=== PATIENT | male | born 1995 | race Caucasian/White ===

== ENCOUNTER 2019-04-15 12:33 | Emergency (ER) | payer SELFPAY ==
[~2019-04-15] VITALS: Ht 182.9 cm; Wt 77.1 kg
[2019-04-15] MEDS ORDERED: LIDOCAINE 1% INJ 20 ML 20 ML VIAL ONE (12:36)
[2019-04-15] MEDS ORDERED: TETANUS,DIPTH,PERTUSS P/F (BOOSTRIX) 0.5 ML VIAL IM ONE (12:45)
[2019-04-15] MEDS ORDERED: LIDOCAINE 1% INJ 20 ML 20 ML VIAL INJ ONE (12:45)
[2019-04-15 13:00] VITALS: BP 133/73
--- NOTE | 2019-04-15 13:00 | NUR ---
placed (2) 4-0 Nylon blanket stitches over right middle finger PIP joint
--- NOTE | 2019-04-15 13:03 | ED Upper Extremity ---
General Chief Complaint: Laceration Stated Complaint: RT FINGER LAC Source: patient Exam Limitations: no limitations History of Present Illness Date Seen by Provider: April 15, 2019 Time Seen by Provider: 12:58 Initial Comments This 23-year-old white male presents after stating laceration 2 weeks ago on sharp metal while forcefully closing a window. The patient's injury was to the PIP joint dorsal aspect right middle finger. The wound has not closed and the patient has been sent to the emergency department by his employer for evaluation. There is been no undue redness or increasing pain to the area. The laceration is simply failed to close this is located over the PIP joint and the patient has been using the finger vigorously. Patient has some intermittent numbness to the dorsum of his right middle finger. He denies loss of motion of the digit or decrease in strength. Allergies and Home Medications Allergies Coded Allergies: No Known Drug Allergies (Unverified , 04/15/19) Patient Home Medication List Home Medication List Reviewed: Yes Review of Systems Constitutional: No chills EENTM: no symptoms reported Respiratory: No cough Cardiovascular: No chest pain Gastrointestinal: no symptoms reported Genitourinary: no symptoms reported Musculoskeletal: no symptoms reported Skin: other (laceration right middle finger PIP joint dorsum.) Psychiatric/Neurological: No Symptoms Reported Past Qcsmknu-Ozpioi-Ololpc Hx Past Med/Social Hx: Reviewed Nursing Past Med/Soc Hx Physical Exam Vital Signs Capillary Refill : Height, Weight, BMI Height: '" Weight: lbs. oz. kg; BMI Method: General Appearance: WD/WN, no apparent distress HEENT: normal ENT inspection Neck: normal inspection Respiratory: no respiratory distress Shoulder: normal inspection Elbow/Forearm: normal inspection Wrist: Yes normal inspection Hand: Right (there is a 1 cm laceration to the dorsum of the PIP joint of the right middle finger. This laceration is open without evidence of inflammation. There is no extension into the joint. There was a grossly normal neurovascular tendon exam of the right middle finger.) Neurologic/Tendon: normal sensation, normal motor functions, normal tendon functions Neurologic/Psychiatric: no motor/sensory deficits, alert, normal mood/affect, oriented x 3 Skin: normal color, warm/dry, other (1 cm laceration to the right middle finger dorsum of the digit at the PIP joint) Progress/Results/Core Measures Results/Orders My Orders Orders - ESMER ALDANA MD Lidocaine 1% Inj 20 Ml (Xylocaine 1% Inj (04/15/19 12:36) Dipht,Pertuss(Acell),Tet Adult (Boostrix (04/15/19 12:45) Lidocaine 1% Inj 20 Ml (Xylocaine 1% Inj (04/15/19 12:45) Progress Progress Note : Time: 13:01 Progress Note After discussion with the patient treatment options the patient asked that the wound be closed. The wound was copiously cleaned. One percent plain Xylocaine was employed for local anesthesia. 2 horizontal mattress sutures with 4-0 nylon were used to approximate the wound edges. A dressing was applied. Initial ECG Impression Date: April 15, 2019 Departure Impression Primary Impression: Laceration of finger Qualified Codes: S61.212A - Laceration without foreign body of right middle finger without damage to nail, initial encounter Disposition: 01 HOME, SELF-CARE Condition: Improved Departure-Patient Inst. Decision time for Depature: 13:03 Referrals: NO,LOCAL PHYSICIAN (PCP) Primary Care Physician Patient Instructions: Laceration Repair Add. Discharge Instructions: Sutures out in 10-14 days. Watch for signs of infection. Tylenol and/or ibuprofen for pain. Return if any problems or questions. All discharge instructions reviewed with patient and/or family. Voiced understanding. ESMER ALDANA MD April 15, 2019 13:03
--- OUTSIDE RECORDS SUMMARY | 2019-04-15 13:31 | XMS REPORT | Continuity of Care Document ---
Author Organization Unknown Address Unknown Allergies There is no data. Medications There is no data. Problems There is no data. Procedures There is no data. Results There is no data. Encounters ACCT No. Visit Date/Time Discharge Status Pt. Type Provider Facility Loc./Unit Complaint [id number] 03/05/2019 12:30:00 03/05/2019 23:59:59 CLS Outpatient LEAH MELTON LAC [facility]
== END 2019-04-15 13:00 | disposition home or self-care (01) ==
LOC: EDUNIT# 12:33 → ER FS 12:35
DX: S61.212A Laceration without foreign body of right middle finger without damage to nail, initial encounter (principal); Z23 Encounter for immunization; W26.8XXA Contact with other sharp object(s), not elsewhere classified, initial encounter
CPT/HCPCS: 12001; 90471; 90715

== ENCOUNTER 2019-05-18 19:07 | Emergency (ER) | payer SELFPAY ==
[~2019-05-18] VITALS: Ht 182.9 cm; Wt 90.7 kg
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
[2019-05-18] MEDS ORDERED: AMOX500C2 PO (19:52)
--- NOTE | 2019-05-18 19:52 | ED EENT ---
History of Present Illness General Chief Complaint: Dental Problems/Pain Stated Complaint: LT SIDE FACE PAIN, TOOTH PAIN Nursing Triage Note: PT COMPLAINING OF LEFT UPPER DENTAL PAIN. 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 He has tried Orajel. He also took ibuprofen around noon. He attempted to extract the tooth with pliers a couple hours prior to arrival. This was not effective and he further fragmented the tooth. He has not yet contacted a dentist about this problem. He denies any fevers. Allergies and Home Medications Allergies Coded Allergies: No Known Drug Allergies (Unverified , 04/15/19) Home Medications Amoxicillin 500 Mg Capsule, 1,000 MG PO BID Prescribed by: MALACHI CARRILLO on 05/18/191951 Patient Home Medication List Home Medication List Reviewed: Yes Review of Systems Review of Systems Constitutional: no symptoms reported Eyes: No Symptoms Reported Ears: No Symptoms Reported Nose: no symptoms reported Mouth: see HPI Throat: no symptoms reported Respiratory: no symptoms reported Cardiovascular: no symptoms reported Gastrointestinal: no symptoms reported Musculoskeletal: no symptoms reported Skin: no symptoms reported Neurological: No Symptoms Reported Hematologic/Lymphatic: No Symptoms Reported Past Qifoypq-Aylmne-Jraije Hx Past Med/Social Hx: Reviewed Nursing Past Med/Soc Hx Patient Social History Alcohol Use: Denies Use Recreational Drug Use: No Type Used: Cigarettes 2nd Hand Smoke Exposure: Yes Recent Foreign Travel: No Contact w/Someone Who Travel: No Recent Infectious Disease Expo: No Recent Hopitalizations: No Immunizations Up To Date Tetanus Booster (TDap): Less than 5yrs Seasonal Allergies Seasonal Allergies: No Past Medical History Surgeries: No Respiratory: No Cardiac: No Neurological: No Genitourinary: No Gastrointestinal: No Musculoskeletal: No Endocrine: No HEENT: No Cancer: No Psychosocial: No Integumentary: No Blood Disorders: No Physical Exam Vital Signs Vital Signs - First Documented 05/18/19 19:23 Temp 97.7 Pulse 65 Resp 18 B/P (MAP) 138/75 (96) Pulse Ox 99 O2 Delivery Room Air Height, Weight, BMI Height: 6'0" Weight: 200lbs. oz. 90.064553zh; BMI Method:Stated General Appearance: WD/WN, mild distress Eyes: bilateral eye normal inspection, bilateral eye PERRL, bilateral eye EOMI Ears: bilateral ear auricle normal, bilateral ear canal normal, bilateral ear TM normal Nose: normal inspection Mouth/Throat: pharynx normal, other (multiple dental caries in the left upper molars. The most posterior molar is fractured and significantly decayed. There is localized erythema of the gingiva with mild edema. 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, no motor/sensory deficits, alert, normal mood/affect, oriented x 3 Skin: normal color, warm/dry Progress/Results/Core Measures Results/Orders My Orders Orders - MALACHI MARIEE MD Amoxicillin Capsule (Polymox Capsule) (05/18/19 20:00) Medications Given in ED Current Medications Medications Dose Ordered Sig/Jacob Route Start Time Stop Time Status Last Admin Dose Admin Amoxicillin 1,000 mg ONCE ONCE PO 05/18/19 20:00 05/18/19 20:01 DC 05/18/19 19:54 1,000 MG Vital Signs/I&O 05/18/19 05/18/19 19:23 20:00 Temp 97.7 Pulse 65 65 Resp 18 20 B/P (MAP) 138/75 (96) 138/75 (96) Pulse Ox 99 99 O2 Delivery Room Air Blood Pressure Mean: 96 Progress Progress Note : Progress Note The first dose of amoxicillin was given in the ER as pharmacies are now closing. He was advised to seek attention from a dentist as soon as possible. Tylenol and ibuprofen together were recommended for pain control. Departure Impression Primary Impression: Dental decay Additional Impressions: Pain, dental Gingivitis Disposition: HOME, SELF-CARE Condition: Improved Departure-Patient Inst. Decision time for Depature: 19:49 Referrals: NO,LOCAL PHYSICIAN (PCP/Family) Primary Care Physician Patient Instructions: Dental Pain, Tooth Decay, Adult Add. Discharge Instructions: Complete your antibiotics as prescribed. See a dentist as soon as possible (call tomorrow) as dental extraction is ultimately what is needed to treat your problem. For pain take ibuprofen up to 600 mg every 6 hours as needed in combination with Tylenol (acetaminophen) up to 1000 mg every 6 hours. Contact your dentist or primary care provider for any other problems or concerns . All discharge instructions reviewed with patient and/or family. Voiced understanding. Scripts Amoxicillin (Amoxicillin) 500 Mg Capsule 1000 MG PO BID, #40 CAP 0 Refills Prov: MALACHI MARIEE MD 05/18/19 MALACHI MARIEE MD May 18, 2019 19:52
[2019-05-18 20:00] VITALS: BP 138/75
[2019-05-18] MEDS ORDERED: AMOXICILLIN 500 MG (POLYMOX) CAP PO ONE (20:00)
== END 2019-05-18 20:00 | disposition home or self-care (01) ==
LOC: EDUNIT# 19:07 → ER FS 19:10
DX: K02.9 Dental caries, unspecified (principal); K05.10 Chronic gingivitis, plaque induced; Z77.22 Contact with and (suspected) exposure to environmental tobacco smoke (acute) (chronic)
CPT/HCPCS: 99283

== ENCOUNTER 2020-05-14 12:39 | Emergency (ER) | payer SELFPAY ==
[~2020-05-14] VITALS: Ht 182 cm; Wt 98.8 kg
[~2020-05-14 12:39] MED LIST: AMOX500C2 PO
--- OUTSIDE RECORDS SUMMARY | 2020-05-14 12:43 | XMS REPORT | Continuity of Care Document ---
Author Organization Unknown Address Unknown Phone Unavailable Allergies Active Description Code Type Severity Reaction Onset Reported/Identified Relationship to Patient Clinical Status Yes No Known Drug Allergies [id number] Drug Allergy Unknown N/A 04/15/2019 Medications There is no data. Problems Date Dx Coded Attending Type Code Diagnosis Diagnosed By 04/15/2019 JOVAN QIU, ESMER Corea Ot S61.212A LACERATION W/O FB OF R MID FINGER W/O DA 04/15/2019 ESMER ALDANA MD Ot W26.8XXA CONTACT WITH OTHER SHARP OBJECT(S), NEC, 04/15/2019 ESMER ALDANA MD Ot Z23 ENCOUNTER FOR IMMUNIZATION 05/21/2019 KODI QIU, MALACHI Dugan Ot K02.9 DENTAL CARIES, UNSPECIFIED 05/21/2019 KODI QIU, MALACHI Dugan Ot K05.10 CHRONIC GINGIVITIS, PLAQUE INDUCED 05/21/2019 KODI QIU, MALACHI Dugan Ot K08.89 OTHER SPECIFIED DISORDERS OF TEETH AND S 05/21/2019 KODI QIU, MALACHI Dugan Ot Z77.22 CNTCT W AND EXPSR TO ENVIRON TOBACCO SMO Procedures There is no data. Results There is no data. Encounters ACCT No. Visit Date/Time Discharge Status Pt. Type Provider Facility Loc./Unit Complaint [id number] 03/05/2019 12:30:00 03/05/2019 23:59:5 9 CLS Outpatient GERONIMO LAC, [facility] [id number] 05/18/2019 19:10:00 019 20:00:00 DIS Outpatient MALACHI MARIEE MD Via [facility] ER FS LT SIDE FACE PA IN, TOOTH PAIN [id number] 04/15/2019 12:35:00 019 13:00:00 DIS Emergency ESMER ALDANA MD Via [facility] ER FS RT FINGER LAC
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
[2020-05-14 14:29] VITALS: BP 133/83
== END 2020-05-14 14:28 | disposition home or self-care (01) ==
LOC: EDUNIT# 12:39 → ER FS 12:40
DX: S60.221A Contusion of right hand, initial encounter (principal); Z77.22 Contact with and (suspected) exposure to environmental tobacco smoke (acute) (chronic); W22.8XXA Striking against or struck by other objects, initial encounter
CPT/HCPCS: 73130

== ENCOUNTER 2022-08-03 09:32 | Emergency (ER) | payer SELFPAY ==
[~2022-08-03] VITALS: Ht 185.5 cm; Wt 104.5 kg
[2022-08-03 09:40] VITALS: BP 144/99
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
[2022-08-03] MEDS ORDERED: ORPHENADRINE 60 MG/2 ML (NORFLEX) AMP (ED ONLY) IM STA (09:43)
[2022-08-03] MEDS ORDERED: KETOROLAC 30 MG/ML VIAL IM STA (09:43)
== END 2022-08-03 09:58 | disposition home or self-care (01) ==
LOC: EDUNIT# 09:32 → ER FS 09:33
DX: G44.209 Tension-type headache, unspecified, not intractable (principal); Z28.310 Unvaccinated for COVID-19
CPT/HCPCS: 99284

== ENCOUNTER 2023-04-22 11:31 | Emergency (ER) | payer SELFPAY ==
[~2023-04-22] VITALS: Ht 185.5 cm; Wt 104.5 kg
--- NOTE | 2023-04-22 12:17 | Diagnostic Imaging Report ---
FOOT 3 VIEW LEFT INDICATION: Left foot pain COMPARISON: None available. TECHNIQUE: Three non-weightbearing views of foot were obtained. FINDINGS: No fracture or traumatic malalignment. No evidence of metatarsal stress fracture. No soft tissue swelling. IMPRESSION: 1. No acute fracture or traumatic malalignment. Dictated by: Dictated on workstation # [id number]
--- NOTE | 2023-04-22 12:36 | ED Lower Extremity ---
General Chief Complaint: Lower Extremity Stated Complaint: LT TOE INJ Nursing Triage Note: PT AMBULATE TO ROOM FS02 WITHOUT DIFFICULTY WITH C/O LEFT FOOT PAIN. Source: patient History of Present Illness Date Seen by Provider: April 22, 2023 Time Seen by Provider: 11:36 Initial Comments 27-year-old male presenting with complaints of pain to his left foot and big toe. On Saturday he had been mowing the lawn and caught his foot causing hyperextension where the foot bent back and touched his thomas. He states that then came back down and he had severe pain. Pain is primarily in the joint of the great toe. He has been taking acetaminophen which has helped with his pain but not resolved. He denies any bruising or color change. He rates his pain at a 4 out of 10 and states it has been fairly constant since the initial severe pain right after the injury. He does have improvement when he takes a Tylenol but it wears off as the Tylenol wears off. He denies having a primary care provider. He states he came in because his was continuing to bother him about the injury. 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 Onset: last week Severity: mild Pain/Injury Location: left 1st toe Method of Injury: other Modifying Factors: Worse With Movement; Improves With Pain Medication Allergies and Home Medications Allergies Coded Allergies: No Known Drug Allergies (Unverified , 04/15/19) Patient Home Medication List Home Medication List Reviewed: Yes Amoxicillin (Amoxicillin) 500 Mg Capsule, 1,000 MG PO BID Prescribed by: MALACHI CARRILLO on 05/18/191951 Review of Systems Constitutional: No chills, No fever EENTM: no symptoms reported Respiratory: no symptoms reported Cardiovascular: no symptoms reported Gastrointestinal: no symptoms reported Genitourinary: no symptoms reported Musculoskeletal: see HPI Skin: No change in color Psychiatric/Neurological: Denies Numbness, Denies Paresthesia, Denies Tingling Past Iqcvxvy-Exlgkp-Yhghwi Hx Patient Social History Tobacco Use?: Yes Tobacco type used: Cigarettes Smoking Status: Heavy Tobacco Smoker Smokeless Tobacco Frequency: Never a User Use of E-Cig and/or Vaping dev: No Use of E-Cig and/or Vaping Jon: Never a User Substance use?: Yes Substance type: Marijuana Substance frequency: Daily Alcohol Use?: No Pt feels they are or have been: No Immunizations Up To Date Tetanus Booster (TDap): Less than 5yrs Seasonal Allergies Seasonal Allergies: No Past Medical History Surgeries: No Respiratory: No Cardiac: No Neurological: No Genitourinary: No Gastrointestinal: No Musculoskeletal: No Endocrine: No HEENT: No Cancer: No Psychosocial: No Integumentary: No Blood Disorders: No Physical Exam Vital Signs Vital Signs - First Documented 04/22/23 04/22/23 11:39 12:40 Temp 36.6 Pulse 67 Resp 14 B/P (MAP) 140/84 (102) Pulse Ox 99 O2 Delivery Room Air Capillary Refill : Less Than 3 Seconds Height, Weight, BMI Height: 6'0" Weight: 200lbs. oz. [id number]; 30.00 BMI Method:Stated General Appearance: WD/WN, no apparent distress Cardiovascular: normal peripheral pulses Feet: left foot pain (left great toe and 1st metatarsal tender to palpation and movement) Neurologic/Tendon: normal sensation, normal motor functions, normal tendon functions Neurologic/Psychiatric: alert, oriented x 3 Skin: normal color, warm/dry Progress/Results/Core Measures Results/Orders My Orders Orders - BRENDA AHMADI MD Foot 3 View Left (04/22/23 11:43) Jose Guadalupe Bandage (04/22/23 12:31) Vital Signs/I&O 04/22/23 04/22/23 11:39 12:40 Temp 36.6 36.2 Pulse 67 84 Resp 14 17 B/P (MAP) 140/84 (102) 134/85 Pulse Ox 99 O2 Delivery Room Air Room Air Blood Pressure Mean: 102 Progress Progress Note #1: Progress Note Potential diagnosis of left great toe fracture, metatarsal fracture, dislocation of the toe, left foot strain, left toe strain. Obtain x-rays of the left foot to evaluate for acute bony abnormality. Patient rates his pain a 4 out of 10 and denies needing any medication currently. Progress Note #2: Time: 12:08 Progress Note On my personal interpretation and review of the three-view films of the left foot he has no acute fracture or dislocation. 1228 I reviewed the radiologist report of the three-view films of the left foot and they also did not see acute abnormality. Dated patient on findings and results. I have him use anti-inflammatory such as ibuprofen 4 to 600 mg which should be 2-3 of the iuuz-oks-jzyzwds pills every 6-8 hours as needed for pain and inflammation. He could also try using Aleve or naproxen 1 to 2 pills every 12 hours as needed for pain. Use ice to help with pain and inflammation. Apply ice 15 to 20 minutes every few hours as needed for pain and inflammation. Try to rest and elevate the foot is much as possible. Discussed using a postop shoe and patient felt that he would not use it so he declined it. He would not be able to use it at work at all and at home he felt like he could rest the foot without using the postop shoe. Will use an Jose Guadalupe bandage for compression and support. Advised to check back with the clinic and see the [facility] or orthopedics if having continued pain or not improving as he may need an MRI to look at soft tissue injuries. Diagnostic Imaging Diagonstic Imaging: Xray Plain Films/CT/US/NM/MRI: other (foot) Comments [facility], [place] NAME: GINNA GUERRERO [facility] REC#: [id number] PT STATUS: REG ER : 1995 PHYSICIAN: BRENDA AHMADI MD ADMIT DATE: 04/22/23/ER FS Signed Date of Exam:04/22/23 FOOT 3 VIEW LEFT FOOT 3 VIEW LEFT INDICATION: Left foot pain COMPARISON: None available. TECHNIQUE: Three non-weightbearing views of foot were obtained. FINDINGS: No fracture or traumatic malalignment. No evidence of metatarsal stress fracture. No soft tissue swelling. IMPRESSION: 1. No acute fracture or traumatic malalignment. Dictated by: Dictated on workstation # [id number] Dict: 04/22/23 121 Trans: 04/22/231215 [facility] [id number] Interpreted by: DANILO COTA MD Electronically signed by: DANILO COTA MD 04/22/231215 Reviewed: Reviewed by Me Departure Impression Primary Impression: Sprain or strain of foot Additional Impression: Strain of great toe of left foot Qualified Codes: S96.912A - Strain of unspecified muscle and tendon at ankle and foot level, left foot, initial encounter Disposition: HOME, SELF-CARE Condition: Stable Departure-Patient Inst. Decision time for Depature: 12:34 Referrals: WILL ANDERSON,LOCAL PHYSICIAN (PCP) Primary Care Physician ALANNA SHAHID [place] [facility] [place] Instructions: Muscle Strain ED, Foot Sprain ED, Using Cold for Pain Add. Discharge Instructions: Use Jose Guadalupe bandage for compression and support. Try to rest the foot and limit use of your foot to allow it to heal. You may apply ice 15 to 20 minutes every few hours as needed for pain and swelling. Take an anti-inflammatory such as ibuprofen or naproxen. Lwdc-wsu-ajrqirh this would be Advil, Motrin, naproxen. If not having improvement over the next week or if symptoms are worsening instead of improving then you should check back with the clinic either [facility] and/or orthopedics. They may need to do an MRI or additional testing beyond what you have already had. Your x-rays do not show any evidence of fractures or dislocations. All discharge instructions reviewed with patient and/or family. Voiced understanding. BRENDA AHMADI MD April 22, 2023 12:36
[2023-04-22 12:40] VITALS: BP 134/85
== END 2023-04-22 12:40 | disposition home or self-care (01) ==
LOC: EDUNIT# 11:31 → ER FS 11:34
DX: S96.912A Strain of unspecified muscle and tendon at ankle and foot level, left foot, initial encounter (principal); F17.210 Nicotine dependence, cigarettes, uncomplicated; Z28.310 Unvaccinated for COVID-19; X50.1XXA Overexertion from prolonged static or awkward postures, initial encounter
CPT/HCPCS: 73630

== ENCOUNTER 2023-08-16 13:01 | Day surgery (SDC) | payer OTHER ==
[~2023-08-16] VITALS: Ht 185.5 cm; Wt 104.5 kg
[2023-08-16] VITALS (8 sets, daily range): BP systolic 116–140; BP diastolic 85–95
[2023-08-16] MEDS ORDERED: ACHD5005 PO (13:14)
[2023-08-16] MEDS ORDERED: CEPH500T PO (13:14)
[2023-08-16] MEDS ORDERED: HYDROcodone/ACETAMINOPHEN 5 MG/325 MG TABLET PO ONE ×2 (13:15→18:00)
[2023-08-16] MEDS ORDERED: Tetanus/Diphtheria/Pertussis (Acell) ADULT Vaccine 0.5 ML IM ONE (13:15)
--- NOTE | 2023-08-16 13:15 | ED Upper Extremity ---
General Stated Complaint: WC LT HAND FOREIGN OBJECT Source: patient Exam Limitations: no limitations History of Present Illness Date Seen by Provider: Aug 16, 2023 Time Seen by Provider: 13:02 Initial Comments 27-year-old male that is vtmsh-saie-etfmadbj coming in after he stapled his left hand. He was at work, this, and at the base of his left thumb before noon today. Went to the clinic, was referred here. He is unsure of his last tetanus vaccine. He is having a moderate, constant, sharp pain, worse with movement, better with rest. Denies any numbness. Has not had any significant bleeding. Allergies and Home Medications Allergies Coded Allergies: No Known Drug Allergies (Unverified , 04/15/19) Patient Home Medication List Home Medication List Reviewed: Yes Amoxicillin (Amoxicillin) 500 Mg Capsule, 1,000 MG PO BID Prescribed by: MALACHI CARRILLO on 05/18/191951 Cephalexin (Cephalexin) 500 Mg Tablet, 500 MG PO QID Prescribed by: KRISH KOTHARI on 08/16/23 1314 Hydrocodone/Acetaminophen (Hydrocodone-Acetamin 5-325 mg) 5 Mg-325 Mg Tablet, 1 TAB PO Q6H PRN for PAIN-MODERATE (5-7) Prescribed by: KRISH KOTHARI on 08/16/23 1314 Review of Systems Constitutional: No fever EENTM: see HPI Respiratory: no symptoms reported Cardiovascular: no symptoms reported Gastrointestinal: no symptoms reported Genitourinary: no symptoms reported Musculoskeletal: see HPI Psychiatric/Neurological: No Symptoms Reported Past Azvbuzg-Nuovil-Jkcsvn Hx Immunizations Up To Date Tetanus Booster (TDap): Less than 5yrs Seasonal Allergies Seasonal Allergies: No Past Medical History Surgeries: No Respiratory: No Cardiac: No Neurological: No Genitourinary: No Gastrointestinal: No Musculoskeletal: No Endocrine: No HEENT: No Cancer: No Psychosocial: No Integumentary: No Blood Disorders: No Physical Exam Vital Signs Vital Signs - First Documented 08/16/23 13:05 Temp 36.9 Pulse 84 Resp 16 B/P (MAP) 141/92 (108) Pulse Ox 96 O2 Delivery Room Air Capillary Refill : Height, Weight, BMI Height: 6'0" Weight: 200lbs. oz. 90.843200yj; 30.00 BMI Method:Stated General Appearance: WD/WN, no apparent distress HEENT: PERRL/EOMI, normal ENT inspection, pharynx normal Neck: non-tender, full range of motion, supple, normal inspection Cardiovascular: regular rate, rhythm, no edema, no murmur Respiratory: chest non-tender, lungs clear, normal breath sounds, no respiratory distress, no accessory muscle use Gastrointestinal: normal bowel sounds, non tender, soft; No distended, No guarding, No rebound Back: normal inspection, no CVA tenderness Hand: Left (Staple embedded in the base of the left thumb near the hand from the dorsal to the palmar surface) Neurologic/Psychiatric: no motor/sensory deficits, alert, normal mood/affect Skin: normal color, warm/dry Progress/Results/Core Measures Results/Orders My Orders Orders - KRISH KOTHARI MD Dipht/Pertuss(Acell)/Tet Adult (Dipht/Pe (08/16/23 13:15) Hydrocodone/Apap 5/325 Tablet (Hydrocod (08/16/23 13:15) Hand 3 View Left (08/16/23 13:10) Lidocaine 2% W/Epi 1:100,000 (Xylocaine/ (08/16/23 13:34) Medications Given in ED Current Medications Medications Dose Ordered Sig/Jacob Route Start Time Stop Time Status Last Admin Dose Admin Acetaminophen/ Hydrocodone Bitart 1 ea ONCE ONCE PO 08/16/23 13:15 08/16/23 13:16 DC 08/16/23 13:21 1 EA Diphtheria/ Tetanus/Acell Pertussis 0.5 ml ONCE ONCE IM 08/16/23 13:15 08/16/23 13:16 DC 08/16/23 13:21 0.5 ML Lidocaine/ Epinephrine 20 ml STK-MED ONCE .ROUTE 08/16/23 13:34 08/16/23 13:36 DC 08/16/23 13:34 20 ML Vital Signs/I&O 08/16/23 13:05 Temp 36.9 Pulse 84 Resp 16 B/P (MAP) 141/92 (108) Pulse Ox 96 O2 Delivery Room Air Progress Progress Note : Progress Note 27-year-old male with above history coming in after he stapled his left hand. ABCs were intact and vitals were stable on presentation. Physical exam with the after mentioned stable. Unfortunately, he trimmed the portion that was connecting the 2 parallel sharp ends of the staple. Essentially now he has 2 parallel pieces of metal in his hand without the piece connecting them making it more difficult to pull out. X-ray showed that 1 piece still has a portion of the connection at a right angle. I was able to pull out one of the pieces, and the other one is not visible at all through the skin. I extended the puncture wound slightly based on what I could feel, however I was unable to pull it out. I then contacted Dr. Bennett, the surgeon, and he will see the patient as an outpatient for potential surgery today to remove it. Tetanus was updated here, given hydrocodone as well as a prescription for that and an antibiotic. Diagnostic Imaging Diagonstic Imaging: Xray (left hand) Comments [facility], [place] NAME: GINNA GUERRERO MED REC#: [id number] PT STATUS: REG ER : 1995 PHYSICIAN: KRISH KOTHARI MD ADMIT DATE: 08/16/23/ER FS Draft Date of Exam:08/16/23 HAND 3 VIEW LEFT INDICATION: Penetration injury. FINDINGS: There are two adjacent metallic foreign bodies in the soft tissues of the thenar eminence along the ulnar margin of the first MTP. The more proximal cannot be readily from the sesamoid bone. No fracture identified. IMPRESSION: Soft tissue foreign bodies in the webbing between the first and second rays with no visible fracture; however, distal is difficult to separate from the sesamoid or ossicle at the first MTP. Dictated on workstation # [id number] Dict: 08/16/23 1323 Trans: 08/16/23 1329 [id number] Interpreted by: BRISA ESCALONA Electronically signed by: Departure Impression Primary Impression: Foreign body of hand, left Qualified Codes: S60.552A - Superficial foreign body of left hand, initial encounter Disposition: 01 HOME, SELF-CARE Condition: Stable Departure-Patient Inst. Decision time for Depature: 14:15 Referrals: NO,LOCAL PHYSICIAN (PCP/Family) Primary Care Physician Patient Instructions: Foreign Body in Skin ED Scripts Hydrocodone/Acetaminophen (Hydrocodone-Acetamin 5-325 mg) 5 Mg-325 Mg Tablet 1 TAB PO Q6H PRN for PAIN-MODERATE (5-7) for 3 Days, #12 TAB Prov: KRISH KOTHARI MD 08/16/23 Cephalexin (Cephalexin) 500 Mg Tablet 500 MG PO QID for 7 Days, #28 TAB Prov: KRISH KOTHARI MD 08/16/23 Work/School Note: Work Release Form Date Seen in the Emergency Department: Aug 16, 2023 Return to Work: Aug 19, 2023 Restrictions: Need Release from Doctor KRISH KOTHARI MD Aug 16, 2023 13:15
--- NOTE | 2023-08-16 13:29 | Diagnostic Imaging Report ---
INDICATION: Penetration injury. FINDINGS: There are two adjacent metallic foreign bodies in the soft tissues of the thenar eminence along the ulnar margin of the first MTP. The more proximal cannot be readily from the sesamoid bone. No fracture identified. IMPRESSION: Soft tissue foreign bodies in the webbing between the first and second rays with no visible fracture; however, distal is difficult to separate from the sesamoid or ossicle at the first MTP. Dictated by: Dictated on workstation # [id number]
[2023-08-16] MEDS ORDERED: LIDOCAINE 2% w/EPI 1:100,000 20 ML VIAL ONE (13:34)
[2023-08-16] MEDS ORDERED: LACTATED RINGERS 1,000 ML 1,000 ML IV PRN (14:45)
[2023-08-16] MEDS ORDERED: LIDOCAINE/EPI 1%-1:200,000 (XYLOCAINE) 30 ML VIAL ONE (14:46)
--- NOTE | 2023-08-16 14:50 | Consultation - Surgery ---
ESMER MARTINEZ 08/16/23 1450: History of Present Illness History of Present Illness Patient Consulted On(anastasia/time) 08/16/23 14:47 Date Seen by Provider: Aug 16, 2023 Time Seen by Provider: 15:43 Reason for Visit: Foreign body (staple) in left hand at the base of the thumb History of Present Illness Pt states he was working holding a 1x4 to a pallet, went to staple it, and stapled through the dorsal side of his hand to the ventral base of the thumb with a 3.5 inch staple. He then cut the middle of the staple and tried to pull out the two halves unsuccessfully. Pt was seen in [facility] first and one of the zaida was removed. X-ray done there showed one staple at the base of the thumb with a right angle. Pt was given a TDaP in [facility]. Allergies and Home Medications Allergies Coded Allergies: No Known Drug Allergies (Unverified , 08/16/23) Patient Home Medication List Amoxicillin (Amoxicillin) 500 Mg Capsule, 1,000 MG PO BID Prescribed by: MALACHI CARRILLO on [birth year]191951 Cephalexin (Cephalexin) 500 Mg Tablet, 500 MG PO QID Prescribed by: KRISH KOTHARI on 08/16/23 1314 Hydrocodone/Acetaminophen (Hydrocodone-Acetamin 5-325 mg) 5 Mg-325 Mg Tablet, 1 TAB PO Q6H PRN for PAIN-MODERATE (5-7) Prescribed by: KRISH KOTHARI on 08/16/23 1314 Past Bpkaywb-Lekkyg-Zfrwuc Hx Patient Social History Number of Drinks Today: 1 Smoking Status: Current Everyday Smoker (half pack a day for 10 years) Type Used: Cigarettes 2nd Hand Smoke Exposure: Yes Recent Hopitalizations: No Alcohol Use?: Yes (1 beer 30 minutes prior to arrival) Substance type: Marijuana Immunizations Up To Date Tetanus Booster (TDap): Less than 5yrs Seasonal Allergies Seasonal Allergies: No Surgeries History of Surgeries: Yes (stitches on right flank after falling through a table as a kid) Respiratory History of Respiratory Disorde: No Cardiovascular History of Cardiac Disorders: No Neurological History of Neurological Disord: No Genitourinary History of Genitourinary Disor: No Gastrointestinal History of Gastrointestinal Di: No Musculoskeletal History of Musculoskeletal Dis: No Endocrine History of Endocrine Disorders: No HEENT History of HEENT Disorders: No Cancer History of Cancer: No Psychosocial History of Psychiatric Problem: No Integumentary History of Skin or Integumenta: No Blood Transfusions History of Blood Disorders: No Family Medical History Significant Family History: No Pertinent Family Hx (no FH of diabetes, no HBP, no CAD), Cancer (2009 grandfather, unknown kind) Review of Systems-General Constitutional: No chills, No fever EENTM: No vision loss, No epistaxis Respiratory: No cough, No dyspnea on exertion Cardiovascular: No chest pain, No palpitations Gastrointestinal: No abdominal pain, No dysphagia Genitourinary: No dysuria, No hematuria Musculoskeletal: other (staple in left hand, painful and numb, was stuck in a claw form until seen in the ED) Skin: lesions (bleeding and erythema of left thumb base area) Psychiatric/Neurological: Denies Anxiety, Denies Depressed Physical Exam-General Problems Physical Exam Vital Signs Vital Signs - First Documented 08/16/23 13:05 Temp 36.9 Pulse 84 Resp 16 B/P (MAP) 141/92 (108) Pulse Ox 96 O2 Delivery Room Air Capillary Refill : Less Than 3 Seconds General Appearance: no apparent distress, obese HEENT: No scleral icterus (R), No scleral icterus (L) Neck: non-tender, normal inspection Respiratory: lungs clear, normal breath sounds, no respiratory distress, no accessory muscle use Cardiovascular: regular rate, rhythm (HR 77), no murmur Peripheral Pulses: 2+ Carotid (R), 2+ Carotid (L), 2+ Dorsalis Pedis (R), 2+ Left Dors-Pedis (L), 2+ Radial Pulses (R), 2+ Radial Pulses (L) Gastrointestinal: non tender, soft Extremities: No normal range of motion (left thumb movement impaired); inflammation (left thumb base), swelling (left thumb base) Neurologic/Psychiatric: alert, oriented x 3 Skin: normal color, warm/dry, other (left thumb base swelling, erythema, bloo dy) Assessment/Plan Assessment/Plan Assessment/Plan Foreign body in left hand (staple) - surgical removal ANTONIA SNYDER DO 08/16/23 1619: History of Present Illness History of Present Illness Time Seen by Provider: 16:01 History of Present Illness Surgery asked to consult regarding retained foreign body. HPI per ED: 27-year-old male that is sszau-jiac-zjzwjgje coming in after he stapled his left hand. He was at work, this, and at the base of his left thumb before noon today. Went to the clinic, was referred here. He is unsure of his last tetanus vaccine. He is having a moderate, constant, sharp pain, worse with movement, better with rest. Denies any numbness. Has not had any significant bleeding. When I saw him he was in his bed in same day surgery; appeared comfortable. Allergies and Home Medications Allergies Coded Allergies: No Known Drug Allergies (Unverified , 08/16/23) Patient Home Medication List Home Medication List Reviewed: Yes Amoxicillin (Amoxicillin) 500 Mg Capsule, 1,000 MG PO BID Prescribed by: MALACHI CARRILLO on 05/[birth year]/191951 Cephalexin (Cephalexin) 500 Mg Tablet, 500 MG PO QID Prescribed by: KRISH KOTHARI on 08/16/23 1314 Hydrocodone/Acetaminophen (Hydrocodone-Acetamin 5-325 mg) 5 Mg-325 Mg Tablet, 1 TAB PO Q6H PRN for PAIN-MODERATE (5-7) Prescribed by: KRISH KOTHARI on 08/16/23 1314 Past Hkshaca-Lepecl-Gmkoww Hx Patient Social History Smoking Status: Current Everyday Smoker (half pack a day for 10 years) Alcohol Use?: Yes (1 beer 30 minutes prior to arrival) Surgeries History of Surgeries: Yes (stitches on right flank after falling through a table as a kid) Respiratory History of Respiratory Disorde: No Cardiovascular History of Cardiac Disorders: No Neurological History of Neurological Disord: No Genitourinary History of Genitourinary Disor: No Gastrointestinal History of Gastrointestinal Di: No Musculoskeletal History of Musculoskeletal Dis: No Endocrine History of Endocrine Disorders: No HEENT History of HEENT Disorders: No Cancer History of Cancer: No Psychosocial History of Psychiatric Problem: No Family Medical History Significant Family History: Cancer (2009 grandfather, unknown kind) Review of Systems-General Constitutional: No chills, No fever EENTM: No vision loss, No epistaxis Respiratory: No cough, No dyspnea on exertion Cardiovascular: No chest pain, No palpitations Gastrointestinal: No abdominal pain, No dysphagia Genitourinary: No dysuria, No hematuria Musculoskeletal: muscle pain, muscle stiffness, other (staple in left hand, painful and numb, was stuck in a claw form until seen in the ED) Skin: lesions (bleeding and erythema of left thumb base area) Psychiatric/Neurological: Denies Anxiety, Denies Depressed Physical Exam-General Problems Physical Exam General Appearance: no apparent distress, obese Eyes: Bilateral Eye PERRL, Bilateral Eye EOMI HEENT: pharynx normal; No scleral icterus (R), No scleral icterus (L) Neck: non-tender, supple Respiratory: lungs clear, normal breath sounds, no respiratory distress, no accessory muscle use Cardiovascular: regular rate, rhythm (HR 77), no murmur Gastrointestinal: non tender, soft Extremities: inflammation (left thumb base), swelling (left thumb base) Skin: normal color, warm/dry Lymphatic: no adenopathy (neck, axilla or supraclavicular) Data Review Radiology Date of Exam:08/16/23 HAND 3 VIEW LEFT INDICATION: Penetration injury. FINDINGS: There are two adjacent metallic foreign bodies in the soft tissues of the thenar eminence along the ulnar margin of the first MTP. The more proximal cannot be readily from the sesamoid bone. No fracture identified. IMPRESSION: Soft tissue foreign bodies in the webbing between the first and second rays with no visible fracture; however, distal is difficult to separate from the sesamoid or ossicle at the first MTP. Dictated by: Dictated on workstation # [id number] Dict: 08/16/23 1323 Trans: 08/16/23 1446 [id number] Interpreted by: BRISA ESCALONA Electronically signed by: BRISA ESCALONA 08/16/23 1446 Assessment/Plan Assessment/Plan Assessment/Plan Retained foreign body - Left hand Pt accidentally put staple in his left hand. An attempt was made to take it out in the ER; which was only partially successful. He still has one side of the staple with what looks like a 90 degree angle left in his thumb. ER doctor tried to pull them both out of the palmar surface, but obviously the side with the bend would not come out (staple went in dorsal side). I talked to pt about removal; going over risks and complications not limited to pain, bleeding, infection, scar, damage to nerves or vessels and need for further procedure. I discussed bad signs; hand gets more swollen, increased drainage or red streak going up arm. I told him ignoring these could cause him to lose function or even a finger. We will remove the foreign body and send him home on ABX. F/U in my office next week. Will get consent for removal of foreign body left hand. I marked the hand. Supervisory-Addendum Brief Verification & Attestation Participated in pt care: history, MDM, physical Personally performed: exam, history, MDM, supervision of care Care discussed with: Medical Student Procedures: n/a Verification and Attestation of Medical Student E/M Service A medical student performed and documented this service. I then reviewed and verified all information documented by the medical student and made modifications to such information, when appropriate. I personally performed a physical exam, medical decision making and then discussed any differences betwee n the notes and made revisions as necessary to create one note. Antonia Snyder , 08/16/23 , 16:19 ESMER MARTINEZ Aug 16, 2023 14:50 ANTONIA SNYDER DO Aug 16, 2023 16:19
[2023-08-16] MEDS ORDERED: NS (IVPB) 50 ML 50 ML ONE (16:01)
[2023-08-16] MEDS ORDERED: ceFAZolin INJECTION 2,000 MG ONE (16:01)
[2023-08-16] MEDS ORDERED: MIDAZOLAM INJ 2 MG/2 ML VIAL ONE (16:11)
[2023-08-16] MEDS ORDERED: ONDANSETRON INJECTION 4 MG/2 ML (SDV) ONE (16:11)
[2023-08-16] MEDS ORDERED: LIDOCAINE PF 2% 5 ML VIAL ONE (16:11)
[2023-08-16] MEDS ORDERED: ceFAZolin INJECTION 2,000 MG in NS (IVPB) 50 ML 50 ML IV ONE (16:30)
--- NOTE | 2023-08-16 16:56 | Progress Note-Post Operative ---
Post-Operative Progess Note Surgeon (s)/Referral Manager (s) Surgeon ANTONIA SNYDER DO Referral Manager: CAMPBELL Augustin Pre-Operative Diagnosis Retained foreign body Left hand Post-Operative Diagnosis same - portion of steel staple Procedure & Operative Findings Date of Procedure 08/16/23 Procedure Performed/Findings Removal of retained foreign body, left hand with C-arm Anesthesia Type IV sedation and nerve block Estimated Blood Loss Estimated blood loss (mL): scant Specimens/Packing Specimens Removed foreign body Packin ANTONIA SNYDER DO Aug 16, 2023 16:56
--- NOTE | 2023-08-16 17:00 | Discharge Inst-Surgical ---
Discharge Inst-Surgical Depart Medication/Instructions New, Converted or Re-Newed RX: Transmitted to Pharmacy Patient Instructions Follow up Appt: Make appointment for 1 week. [phone] Instructions: No lifting greater than 20 pounds. No strenuous activity. May shower in 24 hours, no tub bath or soaking. Use incentive spirometer at home as directed. No Smoking Skin/Wound Care: May remove bandages in am. You need to clean the hand daily and protect it from dirt; keep dry. Symptoms to Report: Appetite Changes, Extremity Discoloration, Numbness/Tingling, Swelling Increased, Bleeding Excessive, Eyesight Changes, Pain Increased, Urine Color Change, Constipation(Persistent), Fever over 101 degree F, Pain/Pressure in chest, Urinating Difficulty, Cough Up/Vomit Blood, Heart Beat Irreg/Pounding, Pain/Pressure in jaw, Cramps in feet or legs, Lightheadedness, Pain/Pressure in shoulder, Diarrhea(Persistent), Memory Changes Suddenly, Questions/Concerns, Weight gain consecutive days, Dizziness/Fainting, Nausea/Vomiting, Shortness of Breath, Weight gain over 2 pounds If questions or concerns contact your physician Or seek help at emergency department. Activity Activity as Tolerated: Yes Activity Instructions: Avoid Stress to Incision Driving Instructions: No Driving/Refer to Dr. Melendez Discharge Diet: No Restrictions Diet After 24 Hours: Clear Liquid if Nauseous If Any Problems/Questions/Issu: Contact Your Physician, Go to Emergency Room Skin/Wound Care Infection Signs and Symptoms: Increased Redness, Foul Odor of Wound, Increased Drainage, Skin Itchy or Has a Rash, Increased Swelling, Temperature Above 101 F Bathing Instructions: ANTONIA Hatch DO Aug 16, 2023 16:59
--- NOTE | 2023-08-16 17:04 | Anesthesia-Regional Post-Op ---
Regional Patient Condition Mental Status: Alert, Oriented x3 Circulation: Same as Pre-Op Headache: Absent Sensation: Full Recovery Motor Block: Absent Post Op Complications Complications None Follow Up Care/Instructions Patient Instructions None needed. Anesthesia/Patient Condition Patient is doing well, no complaints, stable vital signs, no apparent adverse anesthesia problems. No complications reported per nursing. ALANNA ERAZO CRNA Aug 16, 2023 17:04
[2023-08-16] MEDS ORDERED: ONDANSETRON INJECTION 4 MG/2 ML (SDV) IVP PRN (17:15)
[2023-08-16] MEDS ORDERED: morphine INJ 10 MG/ML 1ML (SYR OR VIAL) IVP ONE (17:15)
[2023-08-16] MEDS ORDERED: HYDROcodone/ACETAMINOPHEN 5 MG/325 MG TABLET ONE (17:57)
--- NOTE | 2023-08-17 02:58 | OPERATIVE REPORT ---
DATE OF SERVICE: 08/16/2023 PREOPERATIVE DIAGNOSIS: Retained foreign body, left hand. POSTOPERATIVE DIAGNOSIS: Retained foreign body, left hand with portion of the steel staple. PROCEDURE: Removal of retained foreign body, left hand with C-arm assistance. SURGEON: William Bennett DO DEPARTMENT ADMINISTRATOR: RAH Augustin. ANESTHESIA: IV sedation and nerve block by GAME AGENT. SPECIMEN: Foreign body. BLOOD LOSS: Scant. FLUIDS: Per anesthesia. POSTOPERATIVE CONDITION: Stable. INDICATIONS FOR PROCEDURE: The patient is a 27-year-old male who was at work putting pellets together and he stapled his left hand while he was trying to put the pellets together. At that time, he cut part of it out with what he called [ ] scissors and tried to straighten them. He went to the ER. In the ER, it was noted that he could not move his left thumb and they made a cut on the palmar aspect of his hand to try and take out one of the zaida. They were able to get one up and the other one had a 90-degree bend and they could not pull that out and then when he got here to the hospital, he said they could not move his left thumb with what felt like his hand like a [ ] unsure if this is just swelling and finally able to remove the foreign body. DESCRIPTION OF PROCEDURE: After informed consent was obtained, the patient was brought to the operating room and placed on table in supine position. He had a nerve block performed by the GAME AGENT and then his arm was sterilely prepped and draped in normal fashion. I could see on the dorsal aspect of his left hand, the hand had been marked prior to surgery, could see 2 holes where the staple had penetrated. Did not feel I could cut, but I thought we would have seen an angle of this retained portion of staple. I elected to pull the C-arm over and shot two x-rays, one with the palm down and then one with the hand sitting up and down to be able to see that I was on the correct side of the dorsal side with the side that had the 90-degree bend. At this point, I then made a small incision between the 2 puncture wounds with a #15 blade, carried down through the skin just into the subcutaneous tissue. I then pushed on the palmar aspect. I could feel the staple. On this aspect, I was able to push and then keep gently pushing and I was able to use two skin hooks to hold the skin aside and then I was able to see the end of the staple. I was able to then grasp this with a hemostat and then pulled this out. I did not have to do any digging to get this. I was able to push up almost to the skin, but it was just below in the fat, grabbed it and pulled it out; it came out very easily, copiously irrigated with normal saline. I then had the nurses washed the hand very well, then put some Xeroform gauze and a dressing, but did not close the incision. The patient tolerated the procedure. He was then transferred to recovery room in stable condition. Sponge and needle count correct at the end of the case. Job ID: [id number] DocumentID: [id number] Dictated Date: 08/16/2023 16:57:46 Rare/Endangered Species Specialist Date: 08/17/2023 02:07:00 Dictated By: WILLIAM BENNETT DO
== END 2023-08-16 18:05 ==
LOC: EDUNIT# 13:01 → ER FS 13:02 → SDC 14:02
PROVIDERS: ATTEND Surgery
DX: S60.552A Superficial foreign body of left hand, initial encounter (principal); W27.8XXA Contact with other nonpowered hand tool, initial encounter; F17.210 Nicotine dependence, cigarettes, uncomplicated; Z28.310 Unvaccinated for COVID-19
CPT/HCPCS: 73130; 90715